=== PATIENT | female | born 1955 | race Caucasian/White ===

== ENCOUNTER 2018-06-06 10:57 | Inpatient (IN) | payer SELFPAY ==
[2018-06-06 11:41] LABS: PLATELET COUNT 217 10^3/uL (150-400)
[2018-06-06] MEDS ORDERED: NS 1,000 ML IV ONE ×3 (11:46→13:49)
--- NOTE | 2018-06-06 11:50 | EDPHY ---
H & P Time Seen by Provider: 06/06/18 11:29 HPI/ROS: CHIEF COMPLAINT: Fever, weakness HISTORY OF PRESENT ILLNESS: 62-year-old female presents to the emergency department with her son feeling feverish and weakness. She is visiting from [place]. She had symptoms prior to leaving [place] where she felt weak and feverish. She has had a mild cough. Her son states that she has gotten worse over last few days. She is not wanting to get up off the couch. She has some mild shortness of breath. Mild cough. No pain in her chest. No nasal congestion or rhinorrhea. No known ill contacts. No abdominal pain or vomiting. No back pain. No urinary symptoms. History of diabetes diagnosed 5 years ago. Was on metformin and insulin. She only took the insulin for 1 month and then stopped this because her blood sugars were in good control and was just on oral metformin for 3 years. She then went to homeopathic doctor and has been using some type of drops that are harvested from her own saliva. She does the drops 3 times daily and has been doing this as her only means of controlling her diabetes for last 2 years. She has not use the drops for last 4 days because of weakness. REVIEW OF SYSTEMS: Constitutional: Fever as above. Eyes: No double or blurry vision. ENT: No sore throat. Respiratory: Occasional cough. Mild shortness of breath Cardiac: No chest pain. Gastrointestinal: Vomiting x2 yesterday. None today. No abdominal pain or diarrhea. Genitourinary: No dysuria. Musculoskeletal: No neck or back pain. Skin: No rashes. Neurological: No headache. Past Medical/Surgical History: Diabetes, does not get flu shots. Social History: Visiting from [place] Smoking Status: Never smoked Physical Exam: General Appearance: Alert, no distress. Temp 37.0 degrees. Son at bedside is helping to interpret. Eyes: Pupils equal and round. Extraocular motions are all intact. ENT: Mouth: Mucous membranes moist. Respiratory: Diffuse expiratory rhonchi. No respiratory distress. Slight decreased breath sounds in the bases especially on the left side compared to the right. Cardiovascular: Regular rate and rhythm. Gastrointestinal: Abdomen is soft and nontender, no masses, no rebound or guarding, bowel sounds normal. Neurological: Alert and oriented x 3, cranial nerves II through XII grossly intact Skin: Warm and dry, no rashes. Musculoskeletal: Nontender to palpate along the cervical, thoracic or lumbar spine. Neck is supple. Extremities: Full range of motion and no peripheral edema. Psychiatric: Patient is oriented X 3, there is no agitation. Constitutional: Initial Vital Signs Temperature (C) 36.3 C 06/06/18 11:02 Heart Rate 94 06/06/18 11:02 Respiratory Rate 16 06/06/18 11:02 Blood Pressure 153/97 H 06/06/18 11:02 O2 Sat (%) 100 06/06/18 11:02 O2 Delivery Mode Room Air Allergies/Adverse Reactions: No Known Allergies Allergy (Verified 06/06/18 12:46) Home Medications: Medication Instructions Recorded NK [No Known Home Meds] 06/06/18 Medical Decision Making - Diagnostics Imaging Results: Imaging Impressions Chest X-Ray 06/06/18 11:47 Impression: No evidence of acute cardiopulmonary abnormality. Imaging: I viewed and interpreted images myself ED Course/Re-evaluation: Case was discussed with Dr. Magda Aleman, secondary supervising physician, who did not directly evaluate the patient but agrees with treatment and plan. The patient received IV normal saline in the emergency department. Laboratory studies reveal glucose of 458 with a CO2 of 15. BUN is 33 %period% creatinine is normal at 0.7. Potassium is normal at 4.8. DKA protocol was followed and the patient was given IV insulin. park interpreter, Deana, at bedside. Patient will be admitted to the ICU to Dr. Vo for DKA. Chest x-ray reveals no obvious pneumonia. Patient had some diffuse rhonchi throughout. She was given albuterol nebulizer in the emergency department. Differential Diagnosis: Including but not limited to diabetic ketoacidosis, dehydration, pneumonia, electrolyte abnormality - Data Points Laboratory Results: Laboratory Results 06/06/18 11:25 06/06/18 13:05 06/06/18 06/06/18 06/06/18 13:05 13:05 11:25 WBC RBC Hgb Hct MCV MCH MCHC RDW Plt Count MPV Neut % (Auto) Lymph % (Auto) [place] % (Auto) Eos % (Auto) Baso % (Auto) Nucleat RBC Rel Count Absolute Neuts (auto) Absolute Lymphs (auto) Absolute Monos (auto) Absolute Eos (auto) Absolute Basos (auto) Absolute Nucleated RBC Immature Gran % Immature Gran # Puncture Site VENOUS Patient Temperature 37.0 DEGREES DEGREES VBG pH 7.24 L (7.31-7.42) VBG HCO3 14 mEQ/L L mEQ/L (22-26) VBG Total CO2 15 mEq/L L mEq/L (21-27) VBG O2 Saturation 85 % H % (65-75) VBG Base Excess -12.1 mEq/L L mEq/L (-2.5-2.5) Mixed VBG pCO2 34 mmHg L mmHg (40-44) Mixed VBG pO2 55 mmHG H mmHG (35-40) Sodium 135 mEq/L mEq/L 135 mEq/L mEq/L (135-145) (135-145) Potassium 4.7 mEq/L mEq/L 4.8 mEq/L mEq/L (3.3-5.0) (3.3-5.0) Chloride 106 mEq/L mEq/L 98 mEq/L mEq/L (97-110) (97-110) Carbon Dioxide 14 mEq/l L mEq/l 15 mEq/l L mEq/l (22-31) (22-31) Anion Gap 15 mEq/L mEq/L 22 mEq/L H mEq/L (8-16) (8-16) BUN 29 mg/dL H mg/dL 33 mg/dL H mg/dL (7-23) (7-23) Creatinine 0.5 mg/dL L mg/dL 0.7 mg/dL mg/dL (0.6-1.0) (0.6-1.0) Estimated GFR > 60 > 60 Glucose 345 mg/dL H mg/dL 458 mg/dL H mg/dL (70-100) (70-100) Calcium 8.4 mg/dL L mg/dL 9.9 mg/dL mg/dL (8.5-10.4) (8.5-10.4) Phosphorus 3.3 mg/dL mg/dL (2.5-4.5) Magnesium 2.0 mg/dL mg/dL (1.6-2.3) Total Bilirubin 0.7 mg/dL mg/dL 1.1 mg/dL mg/dL (0.1-1.4) (0.1-1.4) Conjugated Bilirubin 0.2 mg/dL mg/dL (0.0-0.5) Unconjugated Bilirubin 0.5 mg/dL mg/dL (0.0-1.1) AST 11 IU/L L IU/L 17 IU/L IU/L (14-46) (14-46) ALT 25 IU/L IU/L 31 IU/L IU/L (9-52) (9-52) Alkaline Phosphatase 78 IU/L IU/L 106 IU/L IU/L (38-126) (38-126) Total Protein 6.1 g/dL L g/dL 7.8 g/dL g/dL (6.3-8.2) (6.3-8.2) Albumin 3.4 g/dL L g/dL 4.5 g/dL g/dL (3.5-5.0) (3.5-5.0) Beta-Hydroxybutyrate Pending Nasal Influenza A PCR Nasal Influenza B PCR 06/06/18 06/06/18 11:25 11:25 WBC 10.75 10^3/uL H 10^3/uL (3.80-9.50) RBC 5.97 10^6/uL H 10^6/uL (4.18-5.33) Hgb 18.1 g/dL H g/dL (12.6-16.3) Hct 51.0 % H % (38.0-47.0) MCV 85.4 fL fL (81.5-99.8) MCH 30.3 pg pg (27.9-34.1) MCHC 35.5 g/dL g/dL (32.4-36.7) RDW 11.9 % % (11.5-15.2) Plt Count 217 10^3/uL 10^3/uL (150-400) MPV 10.2 fL fL (8.7-11.7) Neut % (Auto) 76.8 % H % (39.3-74.2) Lymph % (Auto) 14.4 % L % (15.0-45.0) [place] % (Auto) 8.3 % % (4.5-13.0) Eos % (Auto) 0.0 % L % (0.6-7.6) Baso % (Auto) 0.2 % L % (0.3-1.7) Nucleat RBC Rel Count 0.0 % % (0.0-0.2) Absolute Neuts (auto) 8.26 10^3/uL H 10^3/uL (1.70-6.50) Absolute Lymphs (auto) 1.55 10^3/uL 10^3/uL (1.00-3.00) Absolute Monos (auto) 0.89 10^3/uL H 10^3/uL (0.30-0.80) Absolute Eos (auto) 0.00 10^3/uL L 10^3/uL (0.03-0.40) Absolute Basos (auto) 0.02 10^3/uL 10^3/uL (0.02-0.10) Absolute Nucleated RBC 0.00 10^3/uL 10^3/uL (0-0.01) Immature Gran % 0.3 % % (0.0-1.1) Immature Gran # 0.03 10^3/uL 10^3/uL (0.00-0.10) Puncture Site Patient Temperature VBG pH VBG HCO3 VBG Total CO2 VBG O2 Saturation VBG Base Excess Mixed VBG pCO2 Mixed VBG pO2 Sodium Potassium Chloride Carbon Dioxide Anion Gap BUN Creatinine Estimated GFR Glucose Calcium Phosphorus Magnesium Total Bilirubin Conjugated Bilirubin Unconjugated Bilirubin AST ALT Alkaline Phosphatase Total Protein Albumin Beta-Hydroxybutyrate Nasal Influenza A PCR NEGATIVE FOR FLU A (NEGATIVE) Nasal Influenza B PCR NEGATIVE FOR FLU B (NEGATIVE) Medications Given: Sodium Chloride (Ns) 1,000 mls @ 1,000 mls/hr IV EDNOW ONE PRN Reason: Protocol Stop: 06/06/18 14:48 Last Admin: 06/06/18 13:20 Dose: 1,000 mls Discontinued Medications Albuterol (Proventil Neb) 3 ml IH EDNOW ONE Stop: 06/06/18 12:41 Last Admin: 06/06/18 12:52 Dose: 3 ml Sodium Chloride (Ns) 1,000 mls @ 0 mls/hr IV ONCE ONE PRN Reason: Wide Open Stop: 06/06/18 11:47 Last Admin: 06/06/18 12:01 Dose: 1,000 mls Sodium Chloride (Ns) 1,000 mls @ 1,000 mls/hr IV EDNOW ONE PRN Reason: Protocol Stop: 06/06/18 13:47 Last Admin: 06/06/18 12:53 Dose: 1,000 mls Insulin Human Regular 100 unit / Miscellaneous Medication 1 ea/ Sodium Chloride 101 mls @ 0 mls/hr IV EDNOW ONE; Per Protocol PRN Reason: Protocol Stop: 06/06/18 12:52 Last Admin: 06/06/18 13:47 Dose: 101 mls Potassium Chloride (Potassium Cl 10 Meq (Premix)) 100 mls @ 100 mls/hr IV EDNOW ONE Stop: 06/06/18 14:14 Last Admin: 06/06/18 13:21 Dose: 100 mls Departure - Departure Disposition: [facility] In[facility] Acute Clinical Impression: Weakness Diabetic ketoacidosis Qualifiers: Diabetes mellitus type: type 2 Diabetes mellitus complication detail: without coma Qualified Code(s): E11.10 - Type 2 diabetes mellitus with ketoacidosis without coma Condition: Good
[2018-06-06] MEDS ORDERED: ALBUTEROL 3 ML DEYVIAL IH ONE (12:40)
[2018-06-06] MEDS ORDERED: D50W 25 GM/50 ML SYR IVP PRN (12:51)
[2018-06-06] MEDS ORDERED: D10W 1,000 ML IV ONE (12:51)
[2018-06-06] MEDS ORDERED: INSULIN REGULAR HUMAN 100 UNIT, COSIGN. REQUIRED 1 EA in NS 100 ML IV ONE (12:51)
[2018-06-06] MEDS ORDERED: POTASSIUM Cl (KCl) 10 MEQ/100 ML BAG IV ONE (13:08)
[2018-06-06] MEDS ORDERED: POTASSIUM Cl (KCl) 100 ML IV ONE ×2 (13:15→13:21)
[2018-06-06] MEDS ORDERED: ACETAMINOPHEN 325 MG TAB PO PRN (13:24)
[2018-06-06] MEDS ORDERED: ONDANSETRON DISINTEGRATING 4 MG TAB PO PRN (13:24)
[2018-06-06] MEDS ORDERED: ONDANSETRON 4 MG/2 ML VIAL IVP PRN (13:24)
--- NOTE | 2018-06-06 13:48 | PDGENHP ---
History and Physical - Chief Complaint Cough, Weakness - History of Present Illness Zohreh Moreira is a 62-year-old female with a PMHx of diabetes who presents to [facility] for weakness. Her son is at bedside who has helped with history taking. They report that she is visiting from [place]. She began to have symptoms of fever, weakness and cough begin about 5 days ago before she left for the [place]. She describes cough as productive of yellow sputum and associated with shortness of breath. These symptoms have worsened within the past few days. She denies any chest pain, abdominal pain, edema, palpitations , d/c, dysuria. She does report nausea this morning with an episode of vomiting. She denies any significant past medical history other than diabetes for which she takes homeopathic treatment and diet control. She reports she was on insulin 4-5 years ago but has not been on it since. History Information - Allergies/Home Medication List Allergies/Adverse Reactions: No Known Allergies Allergy (Verified 06/06/18 12:46) Home Medications: NK [No Known Home Meds] 06/06/18 [Last Taken Unknown] I have personally reviewed and updated: family history, medical history, social history, surgical history - Past Medical History diabetes type 2 - Surgical History Reports: no pertinent surgical hx - Family History Positive for: diabetes type II - Social History Smoking Status: Never smoked Review of Systems Review of Systems: ROS: 10pt was reviewed & negative except for what was stated in HPI & below Physical Exam Physical Exam: Temp Pulse Resp BP Pulse Ox 36.3 C 104 H 16 123/71 H 95 06/06/18 11:02 06/06/18 13:23 06/06/18 13:23 06/06/18 13:23 06/06/18 13:23 Constitutional: no apparent distress Eyes: PERRL Ears, Nose, Mouth, Throat: moist mucous membranes Cardiovascular: no murmur, rub, or gallop, tachycardia Respiratory: no respiratory distress, clear to auscultation Gastrointestinal: soft, non-tender abdomen Genitourinary: no bladder tenderness Skin: warm Musculoskeletal: full muscle strength Neurologic: AAOx3 Psychiatric: interacting appropriately Lab Data & Imaging Review 06/06/18 11:25 06/06/18 13:05 WBC 10.75 10^3/uL (3.80-9.50) H 06/06/18 11:25 RBC 5.97 10^6/uL (4.18-5.33) H 06/06/18 11:25 Hgb 18.1 g/dL (12.6-16.3) H 06/06/18 11:25 Hct 51.0 % (38.0-47.0) H 06/06/18 11:25 MCV 85.4 fL (81.5-99.8) 06/06/18 11:25 MCH 30.3 pg (27.9-34.1) 06/06/18 11:25 MCHC 35.5 g/dL (32.4-36.7) 06/06/18 11:25 RDW 11.9 % (11.5-15.2) 06/06/18 11:25 Plt Count 217 10^3/uL (150-400) 06/06/18 11:25 MPV 10.2 fL (8.7-11.7) 06/06/18 11:25 Neut % (Auto) 76.8 % (39.3-74.2) H 06/06/18 11:25 Lymph % (Auto) 14.4 % (15.0-45.0) L 06/06/18 11:25 [place] % (Auto) 8.3 % (4.5-13.0) 06/06/18 11:25 Eos % (Auto) 0.0 % (0.6-7.6) L 06/06/18 11:25 Baso % (Auto) 0.2 % (0.3-1.7) L 06/06/18 11:25 Nucleat RBC Rel Count 0.0 % (0.0-0.2) 06/06/18 11:25 Absolute Neuts (auto) 8.26 10^3/uL (1.70-6.50) H 06/06/18 11:25 Absolute Lymphs (auto) 1.55 10^3/uL (1.00-3.00) 06/06/18 11:25 Absolute Monos (auto) 0.89 10^3/uL (0.30-0.80) H 06/06/18 11:25 Absolute Eos (auto) 0.00 10^3/uL (0.03-0.40) L 06/06/18 11:25 Absolute Basos (auto) 0.02 10^3/uL (0.02-0.10) 06/06/18 11:25 Absolute Nucleated RBC 0.00 10^3/uL (0-0.01) 06/06/18 11:25 Immature Gran % 0.3 % (0.0-1.1) 06/06/18 11:25 Immature Gran # 0.03 10^3/uL (0.00-0.10) 06/06/18 11:25 Puncture Site VENOUS 06/06/18 13:05 Patient Temperature 37.0 DEGREES 06/06/18 13:05 VBG pH 7.24 (7.31-7.42) L 06/06/18 13:05 VBG HCO3 14 mEQ/L (22-26) L 06/06/18 13:05 VBG Total CO2 15 mEq/L (21-27) L 06/06/18 13:05 VBG O2 Saturation 85 % (65-75) H 06/06/18 13:05 VBG Base Excess -12.1 mEq/L (-2.5-2.5) L 06/06/18 13:05 Mixed VBG pCO2 34 mmHg (40-44) L 06/06/18 13:05 Mixed VBG pO2 55 mmHG (35-40) H 06/06/18 13:05 Sodium 135 mEq/L (135-145) 06/06/18 11:25 Potassium 4.8 mEq/L (3.3-5.0) 06/06/18 11:25 Chloride 98 mEq/L (97-110) 06/06/18 11:25 Carbon Dioxide 15 mEq/l (22-31) L 06/06/18 11:25 Anion Gap 22 mEq/L (8-16) H 06/06/18 11:25 BUN 33 mg/dL (7-23) H 06/06/18 11:25 Creatinine 0.7 mg/dL (0.6-1.0) 06/06/18 11:25 Estimated GFR > 60 06/06/18 11:25 Glucose 458 mg/dL (70-100) H 06/06/18 11:25 Calcium 9.9 mg/dL (8.5-10.4) 06/06/18 11:25 Total Bilirubin 1.1 mg/dL (0.1-1.4) 06/06/18 11:25 AST 17 IU/L (14-46) 06/06/18 11:25 ALT 31 IU/L (9-52) 06/06/18 11:25 Alkaline Phosphatase 106 IU/L (38-126) 06/06/18 11:25 Total Protein 7.8 g/dL (6.3-8.2) 06/06/18 11:25 Albumin 4.5 g/dL (3.5-5.0) 06/06/18 11:25 Nasal Influenza A PCR NEGATIVE FOR FLU A (NEGATIVE) 06/06/18 11:25 Nasal Influenza B PCR NEGATIVE FOR FLU B (NEGATIVE) 06/06/18 11:25 Visualized and Interpreted Chest x-ray results: Yes Chest X-Ray results: no infiltrate Assessment & Plan Assessment: Diabetic Ketoacidosis - Presents wit BG 458, AG 22, Bicarb 15, pH on VBG 7.24 - Hx of T2DM, not currently on medical treatment - Started on DKA protocol in ED, s/p 3L IVF - Continue DKA protocol with insulin gtt - Transition to SubQ insulin when AG <12 and able to tolerate diet - B-hydroxybutyrate is pending Metabolic Acidosis - VBG pH 7.24, Bicarb 14 on admission - 2/2 to DKA, management as above T2DM - Management of DKA as above - Lives in [place], controlled by diet and homeopathic remedies at home - Reports being on insulin 4-5 years ago - Ordered Hgb A1c URI - Reports productive cough, fevers at home - Afebrile, WBC 10.7, CXR negative for infiltrate on admission - Will treat symptomatically with anti-tussive, mucolytic - If s/s of infection will consider addition of abx FEN: S/p 3L IVF, additional per DKA protocol, NPO until AG closed Code: FULL Dispo: Admit to ICU, pending clinical course
[2018-06-06] MEDS ORDERED: guaiFENesin/CODEINE PHOS 10 ML UDCUP PO PRN (14:23)
--- NOTE | 2018-06-06 14:30 | ASMTCMCOM ---
CM Note CM Note Notes: Reviewed chart. Pt presented to the Emergency Department with weakness and fever. History includes DM type 2. Pt is visiting from [place], she is [place] speaking only and is accompanied by her son. Pt admitted for further evaluation and treatment of diabetic ketoacidosis, metabolic acidosis, diabetes and an upper respiratory infection. Discharge needs remain unclear at this time. CM will continue to follow. Discharge Plan: To be determined Date Signed: 06/06/2018 02:30 PM Electronically Signed By:Elizabeth Gramajo RN
--- NOTE | 2018-06-06 18:17 | PDMN ---
Medical Necessity Medical necessity: [facility] M130 diabetes: A-1 day: DKA BG 458, AG 22, Bicarb 15, pH on VBG 7.24 Hx of T2DM, not currently on meds, DKA protocol, cont. to monitor
[2018-06-06] MEDS ORDERED: INSULIN GLARGINE 100 UNITS/ML UNIT SC ONE (21:15)
[2018-06-07] MEDS ORDERED: INSULIN REGULAR HUMAN 100 UNIT/ML UNIT SC SCH (07:30)
[2018-06-07 08:27] LABS: PLATELET COUNT 152 10^3/uL (150-400)
[2018-06-07 08:45] VITALS: BP 124/53
[2018-06-07] MEDS ORDERED: ENOXAPARIN 40 MG/0.4 ML SYR SC SCH (09:00)
--- NOTE | 2018-06-07 12:38 | PDDCSUM ---
Discharge Summary Discharge Summary: Date of Admission: 06/06/2018 Date of Discharge: 06/07/2018 Consults: N/A Followup: PCP in [place] Hospital Course Problem List: Diabetic Ketoacidosis - Presents wit BG 458, AG 22, Bicarb 15, pH on VBG 7.24 - Hx of T2DM, not currently on medical treatment - Started on DKA protocol in ED, s/p 3L IVF - Transitioned to Lantus overnight Metabolic Acidosis - VBG pH 7.24, Bicarb 14 on admission - 2/ to DKA, management as above T2DM - Management of DKA as above - Lives in [place], controlled by diet and homeopathic remedies at home - Reports being on insulin 4-5 years ago - Hgb A1c 12.1 - Discharging on Lantus 20 units qHS, she will likely require meal time insulin in the future, but will defer to PCP in [place] URI - Reports productive cough, fevers at home - Viral PCR positive for Parainfluenza Virus - Afebrile, WBC 10.7, CXR negative for infiltrate on admission - Treat symptomatically with anti-tussive, mucolytic Time spent on discharge was >35 minutes with >50% of time spent on patient education and counseling
[2018-06-07] MEDS ORDERED: INSULIN GLARGINE 100 UNITS/ML UNIT SC SCH (21:00)
== END 2018-06-07 10:37 | disposition home or self-care (01) | DRG 639 ==
LOC: F2N 14:12
PROVIDERS: ADMIT Internal Medicine; ATTEND Internal Medicine
DX: E11.10 Type 2 diabetes mellitus with ketoacidosis without coma (principal); J06.9 Acute upper respiratory infection, unspecified; B34.8 Other viral infections of unspecified site
CPT/HCPCS: 82947-PO; 96374; 97165-GO; J1650; J1815; J3480; J7613